=== PATIENT | female | born 1950 | race Two or more races ===

== ENCOUNTER → 2024-10-25 | Outpatient (BNVA) | payer OTHER, MEDICAID, SELFPAY | END | disposition home or self-care (01) | PROVIDERS: PCP Family Medicine; Referring Provider Family Medicine; Visit Provider Urology | DX: R31.29 Other microscopic hematuria (principal); Z87.440 Personal history of urinary (tract) infections; I12.9 Hypertensive chronic kidney disease with stage 1 through stage 4 chronic kidney disease, or unspecified chronic kidney disease; N18.2 Chronic kidney disease, stage 2 (mild); E03.9 Hypothyroidism, unspecified | CPT/HCPCS: 81003; 99212; G0463 ==

== ENCOUNTER → 2024-12-14 | Outpatient (CLI) | payer OTHER, MEDICAID, SELFPAY ==
--- NOTE | 2024-12-14 08:00 | XR_ITS ---
Examination: MRI lumbar spine without contrast Date and time of exam: December 14, 2024 0804 hours INDICATIONS: Low back pain radiating down the right leg numbness and paresthesias in the right leg greater than 1 year, patient fell 8 months ago with injury to lower back Technique: Multiple MRI axial and sagittal sections lumbar spine. Sagittal T2-weighted images, TR 3500, TE 118 T1 weighted transverse sections, TR 688 T8.5, T2-weighted sagittal sections T1 weighted sagittal sections TR 621, TE 30 T2 axial sections, TR 4, 190, TE 84. Findings: Grade 1 anterolisthesis L4 on L5 with moderate disc narrowing at this level No lumbar fracture Normal marrow signal lumbar vertebral bodies Diffuse lumbar disc desiccation L5-S1 Central left paracentral 6 mm disc bulge displacing both S1 nerve roots extending to the left intervertebral foramen with mild left L5 ganglionic compression L4-L5 moderate overall spinal stenosis secondary to the anterolisthesis 5 mm central lumbar disc bulge L3-L4 4 mm central lumbar disc bulge L2-L3 5 mm right paracentral disc bulge L1-L2 no disc protrusion IMPRESSION: L5-S1 Central left paracentral 6 mm disc bulge displacing both S1 nerve roots with mild left L5 ganglionic compression L4-L5 moderate overall spinal stenosis including 5 mm central lumbar disc bulge L3-L4 4 mm central lumbar disc bulge L2-L3 5 mm right paracentral disc bulge
== END | disposition home or self-care (01) ==
LOC: SMRI 07:18
PROVIDERS: Referring Provider Psychiatry & Neurology Neurology; Visit Provider Psychiatry & Neurology Neurology
DX: G95.20 Unspecified cord compression (principal); M48.061 Spinal stenosis, lumbar region without neurogenic claudication; M51.370 Other intervertebral disc degeneration, lumbosacral region with discogenic back pain only; M51.360 Other intervertebral disc degeneration, lumbar region with discogenic back pain only
CPT/HCPCS: 72148